=== PATIENT | female | born 1960 | race Caucasian/White ===

== ENCOUNTER 2017-05-28 16:09 | Emergency (ER) | payer OTHER ==
[~2017-05-28] VITALS: Ht 157.5 cm; Wt 99.1 kg
[~2017-05-28 16:09] MED LIST: PROTONIX40 MG PO
[2017-05-28 19:21] VITALS: BP 136/71
== END 2017-05-28 20:19 | disposition home or self-care (01) ==
LOC: EME 16:09
PROC: 3E0234Z Introduction of Serum, Toxoid and Vaccine into Muscle, Percutaneous Approach (ICD-10-PCS; principal; 2017-05-28)
DX: S50.811A Abrasion of right forearm, initial encounter (principal); V47.5XXA Car driver injured in collision with fixed or stationary object in traffic accident, initial encounter; W22.10XA Striking against or struck by unspecified automobile airbag, initial encounter; Y92.410 Unspecified street and highway as the place of occurrence of the external cause; F10.99 Alcohol use, unspecified with unspecified alcohol-induced disorder; Z23 Encounter for immunization
CPT/HCPCS: 71020; 93005; 99281; 99284